=== PATIENT | female | born 1975 | race Two or more races ===

== ENCOUNTER 2023-05-30 13:16 | Outpatient (CLI) | payer OTHER ==
[2023-05-30 14:16] LABS: COL EPI 137 SECONDS (82-175)
== END 2023-05-30 13:26 | disposition home or self-care (01) ==
LOC: EDBD 13:16 → LAB 13:16
PROVIDERS: ATTEND Internal Medicine Hematology & Oncology
DX: D69.1 Qualitative platelet defects (principal)

== ENCOUNTER 2023-06-12 16:58 | Outpatient (CLI) | payer OTHER ==
[2023-06-12 17:14] LABS: HEMATOCRIT 36.3 % (36.0-45.00); HEMOGLOBIN 12.4 g/dL (12.0-15.00); MEAN CELL VOLUME 93.7 fL (80.00-100.00); MEAN CORPUSCULAR HEMOGLOBIN 31.9 pg (27.00-32.0); MEAN CORPUSCULAR HGB CONC 34.1 g/dl (32.0-36.0); PLATELET COUNT 236 K/uL (150-450); RED BLOOD COUNT 3.88 M/uL (4.00-6.00); RED CELL DISTRIBUTION WIDTH 13.3 % (11.5-14.5)
== END 2023-06-12 23:00 | disposition home or self-care (01) ==
LOC: LAB 16:58
PROVIDERS: ATTEND Internal Medicine Hematology & Oncology
DX: D50.0 Iron deficiency anemia secondary to blood loss (chronic) (principal)

== ENCOUNTER 2023-06-24 12:11 | Emergency (ER) | payer OTHER ==
[~2023-06-24] VITALS: Ht 160 cm; Wt 65.8 kg
[2023-06-24] MEDS ORDERED: CARVEDILOL ER40 MG PO (12:48)
[2023-06-24] MEDS ORDERED: DORZOLAMIDE HCL10 ML OP (12:48)
[2023-06-24] MEDS ORDERED: TRANEXAMIC ACI650 MG PO (12:48)
[2023-06-24] MEDS ORDERED: MEPERIDINE HCL/PF 50 MG/ML VIAL IM STA (13:17)
[2023-06-24 13:54] LABS: HEMATOCRIT 40.1 % (36.0-45.00); HEMOGLOBIN 13.6 g/dL (12.0-15.00); MEAN CELL VOLUME 93.8 fL (80.00-100.00); MEAN CORPUSCULAR HEMOGLOBIN 31.7 pg (27.00-32.0); MEAN CORPUSCULAR HGB CONC 33.8 g/dl (32.0-36.0); PLATELET COUNT 250 K/uL (150-450); RED BLOOD COUNT 4.27 M/uL (4.00-6.00); RED CELL DISTRIBUTION WIDTH 13.4 % (11.5-14.5)
[2023-06-24 14:05] LABS: PH,URINE 5.5 (5.0-8.0); URINE APPEARANCE Clear; URINE BILIRRUBIN Negative (NEGATIVE); URINE BLOOD Moderate; URINE COLOR Yellow; URINE GLUCOSE Negative (NEGATIVE); URINE LEUKOCYTE Moderate; URINE NITRATE Negative; URINE PROTEIN Negative (NEGATIVE); URINE UROBILINOGEN 0.2 E.U./dl
[2023-06-24 14:06] LABS: URINE BACTERIA 9376.8 uL (0.0-1933); URINE EPITHELIAL CELLS 41.7 uL (0.0-38.8); URINE RBC 41.6 uL (0.0-20.8); URINE WBC 344.5 uL (0.0-23.2)
[2023-06-24 14:26] LABS: ALBUMIN 3.7 gm/dL (3.4-5.0); BILIRUBIN TOTAL 0.68 mg/dL (0.3-1.2); BILIRUBIN,CONJUGATED 0.15 mg/dL (0.0-0.2); BILIRUBIN,UNCONJUGATED 0.53 mg/dL (0.0-0.6); CALCIUM 9.1 mg/dL (8.5-10.1); CREATININE SERUM 0.78 mg/dL (0.55-1.02); GFR 79.51; POTASSIUM 3.58 mEq/L (3.5-5.1); TOTAL PROTEIN 7.7 gm/dL (6.4-8.2)
== END 2023-06-24 16:32 | disposition home or self-care (01) ==
LOC: ER 12:12
PROVIDERS: General Practice
DX: N39.0 Urinary tract infection, site not specified (principal); B96.1 Klebsiella pneumoniae [K. pneumoniae] as the cause of diseases classified elsewhere; N20.0 Calculus of kidney; K76.0 Fatty (change of) liver, not elsewhere classified; Z91.013 Allergy to seafood; Z91.018 Allergy to other foods; N28.9 Disorder of kidney and ureter, unspecified

== ENCOUNTER 2024-06-04 12:38 | Outpatient (CLI) | payer OTHER ==
[~2024-06-04 12:38] MED LIST: CARVEDILOL ER40 MG PO; DORZOLAMIDE HCL10 ML OP; TRANEXAMIC ACI650 MG PO
[2024-06-04 13:13] LABS: HEMOGLOBIN 13.6 g/dL (12.0-15.00); MEAN CELL VOLUME 96.7 fL (80.00-100.00); MEAN CORPUSCULAR HEMOGLOBIN 32.1 pg (27.00-32.0); MEAN CORPUSCULAR HGB CONC 33.2 g/dl (32.0-36.0); PLATELET COUNT 237 K/uL (150-450); RED BLOOD COUNT 4.25 M/uL (4.00-6.00); RED CELL DISTRIBUTION WIDTH 13.1 % (11.5-14.5)
[2024-06-04 13:35] LABS: PARTIAL THROMBOPLASTIN TIME 26.7 SECONDS (22.0-34.0); PROTHROMBIN TIME 10.9 SECONDS (9.0-11.5)
[2024-06-04 13:42] LABS: COL EPI 143 SECONDS (82-175)
[2024-06-04 13:52] LABS: ALBUMIN 3.6 gm/dL (3.4-5.0); BILIRUBIN TOTAL 0.65 mg/dL (0.3-1.2); CALCIUM 8.9 mg/dL (8.5-10.1); CREATININE SERUM 0.74 mg/dL (0.55-1.02); GFR 84.12; GLOBULINA 3.2 G/DL (2.4-3.5); POTASSIUM 4.21 mEq/L (3.5-5.1); TOTAL PROTEIN 6.8 gm/dL (6.4-8.2)
== END 2024-06-04 13:13 | disposition home or self-care (01) ==
LOC: LAB 12:38
PROVIDERS: ATTEND Internal Medicine Hematology & Oncology
DX: D64.9 Anemia, unspecified (principal); D69.1 Qualitative platelet defects; D68.8 Other specified coagulation defects; I10 Essential (primary) hypertension

== ENCOUNTER 2024-08-19 07:43 | Outpatient (CLI) | payer OTHER | END 2024-08-19 07:44 | disposition home or self-care (01) | LOC: NUCLEAR 07:43 | PROVIDERS: ATTEND Internal Medicine Hematology & Oncology | DX: I87.2 Venous insufficiency (chronic) (peripheral) (principal) ==

== ENCOUNTER 2024-08-22 08:08 | Outpatient (CLI) | payer OTHER | END 2024-08-22 08:10 | disposition home or self-care (01) | LOC: NUCLEAR 08:08 | PROVIDERS: ATTEND Internal Medicine Hematology & Oncology | DX: I73.9 Peripheral vascular disease, unspecified (principal) ==